=== PATIENT | male | born 1940 | race Caucasian/White ===

== ENCOUNTER 2018-02-12 11:56 | Observation (INO) | payer OTHER, MEDICARE ==
[2018-02-12] MEDS ORDERED: SODIUM CHLORIDE 0.9% 1,000 ML IV STA (12:09)
--- NOTE | 2018-02-12 12:12 | ED ---
Syncope HPI - General Stated Complaint: FALL Time Seen by Provider: 02/12/18 12:00 Source: patient, EMS, RN notes reviewed Mode of arrival: EMS - History of Present Illness Initial Comments: This is a 78-year-old male with a history of hypertension who was standing in a door hanging out states he rolls when he apparently passed out striking his head against a door states he was only out for a few seconds got up was out again for another second 2 denies any head neck or back pain who is brought in by EMS with a cervical collar in place no palpitations chest pain or other symptoms at this time MD Complaint: loss of consciousness - Related Data Home Medications Medication Instructions Recorded Confirmed Aspirin 81 mg PO DAILY 09/19/14 02/12/18 Digoxin [Lanoxin] 125 mcg PO DAILY 09/19/14 02/12/18 Lisinopril [Zestril] 10 mg PO DAILY 09/19/14 02/12/18 Metoprolol Tartrate [Lopressor] 50 mg PO DAILY 09/19/14 02/12/18 glipiZIDE [Glucotrol] 10 mg PO AC-BID 09/19/14 02/12/18 metFORMIN HCL [Glucophage] 850 mg PO TID 09/19/14 02/12/18 Furosemide [Lasix] 40 mg PO BID 02/12/18 02/12/18 Gabapentin [Neurontin] 400 mg PO TID 02/12/18 02/12/18 Insulin Detemir [Levemir Flextouch] 40 units SQ DAILY 02/12/18 02/12/18 Warfarin [Coumadin] 1 mg PO DAILY 02/12/18 02/12/18 Allergies Allergy/AdvReac Type Severity Reaction Status Date / Time No Known Allergies Allergy Verified 02/12/18 12:04 Review of Systems ROS Statement: Those systems with pertinent positive or pertinent negative responses have been documented in the HPI. ROS Other: All systems not noted in ROS Statement are negative. Past Medical History Past Medical History: Atrial Fibrillation, Diabetes Mellitus, Hyperlipidemia, Hypertension History of Any Multi-Drug Resistant Organisms: None Reported Past Psychological History: No Psychological Hx Reported Smoking Status: Never smoker Past Alcohol Use History: None Reported Past Drug Use History: None Reported General Exam - General Exam Comments Initial Comments: This is a well-developed well-nourished awake alert oriented 3 male temperature today [place] Coma Scale of 15 General appearance: alert, in no apparent distress Head exam: Present: atraumatic, normocephalic, normal inspection, other (No abrasions no) Eye exam: Present: normal appearance, PERRL, EOMI. Absent: scleral icterus, conjunctival injection, periorbital swelling ENT exam: Present: normal exam, mucous membranes moist Neck exam: Present: normal inspection. Absent: tenderness, meningismus, lymphadenopathy Respiratory exam: Present: normal lung sounds bilaterally. Absent: respiratory distress, wheezes, rales, rhonchi, stridor Cardiovascular Exam: Present: regular rate, normal rhythm, normal heart sounds. Absent: systolic murmur, diastolic murmur, rubs, gallop, clicks GI/Abdominal exam: Present: soft, normal bowel sounds. Absent: distended, tenderness, guarding, rebound, rigid Extremities exam: Present: normal inspection, full ROM, normal capillary refill. Absent: tenderness, pedal edema, joint swelling, calf tenderness Back exam: Present: normal inspection Neurological exam: Present: alert, oriented X3, CN II-XII intact Psychiatric exam: Present: normal affect, normal mood Skin exam: Present: warm, dry, intact, normal color. Absent: rash Course Vital Signs 02/12/18 02/12/18 02/12/18 12:08 12:28 13:29 Temperature 98.3 F Pulse Rate 74 79 Pulse Rate [ Right Pulse Oximetery] Respiratory 18 18 Rate Blood Pressure 223/98 148/78 143/70 Blood Pressure [Left Arm Sitting] Blood Pressure [Left Arm Standing] Blood Pressure [Left Arm Supine] O2 Sat by Pulse 96 96 Oximetry 02/12/18 02/12/18 14:23 15:34 Temperature Pulse Rate 85 Pulse Rate [ 72 Right Pulse Oximetery] Respiratory 17 18 Rate Blood Pressure 128/75 Blood Pressure 155/78 [Left Arm Sitting] Blood Pressure 163/74 [Left Arm Standing] Blood Pressure 152/75 [Left Arm Supine] O2 Sat by Pulse 98 100 Oximetry EKG Findings - EKG Results: EKG: interpreted by ORLY, sinus rhythm (Sinus rhythm of 80. Interval 174 QRS duration 110 QT since QTC 380/438 left exodeviation artifact is present) Medical Decision Making - Medical Decision Making I did discuss the findings with the patient family members patient is resting comfortably he will be admitted for evaluation of syncope. - Lab Data Result diagrams: 02/12/18 12:07 02/12/18 12:07 Lab Results 02/12/18 02/12/18 02/12/18 Range/Units 12:07 12:07 12:07 WBC 10.3 (3.8-10.6) k/uL RBC 4.08 L (4.30-5.90) m/uL Hgb 13.3 (13.0-17.5) gm/dL Hct 39.2 (39.0-53.0) % MCV 96.2 (80.0-100.0) fL MCH 32.6 (25.0-35.0) pg MCHC 33.9 (31.0-37.0) g/dL RDW 14.8 (11.5-15.5) % Plt Count 283 (150-450) k/uL Neutrophils % 70 % Lymphocytes % 16 % Monocytes % 6 % Eosinophils % 5 % Basophils % 0 % Neutrophils # 7.2 (1.3-7.7) k/uL Lymphocytes # 1.7 (1.0-4.8) k/uL Monocytes # 0.7 (0-1.0) k/uL Eosinophils # 0.5 (0-0.7) k/uL Basophils # 0.0 (0-0.2) k/uL PT (9.0-12.0) sec INR (<1.2) APTT (22.0-30.0) sec Sodium 137 (137-145) mmol/L Potassium 5.0 (3.5-5.1) mmol/L Chloride 106 (98-107) mmol/L Carbon Dioxide 22 (22-30) mmol/L Anion Gap 9 mmol/L BUN 30 H (9-20) mg/dL Creatinine 1.64 H (0.66-1.25) mg/dL Est GFR (CKD-EPI)AfAm 45 (>60 ml/min/1.73 sqM) Est GFR (CKD-EPI)NonAf 39 (>60 ml/min/1.73 sqM) Glucose 176 H (74-99) mg/dL Calcium 8.0 L (8.4-10.2) mg/dL Magnesium 1.8 (1.6-2.3) mg/dL Total Bilirubin 0.4 (0.2-1.3) mg/dL AST 30 (17-59) U/L ALT 27 (21-72) U/L Alkaline Phosphatase 60 (38-126) U/L Total Creatine Kinase 95 (55-170) U/L CK-MB (CK-2) 1.3 (0.0-2.4) ng/mL CK-MB (CK-2) Rel Index 1.4 Troponin I <0.012 (0.000-0.034) ng/mL Total Protein 5.8 L (6.3-8.2) g/dL Albumin 2.8 L (3.5-5.0) g/dL Urine Color Urine Appearance (Clear) Urine pH (5.0-8.0) Ur Specific Faxon (1.001-1.035) Urine Protein (Negative) Urine Glucose (UA) (Negative) Urine Ketones (Negative) Urine Blood (Negative) Urine Nitrite (Negative) Urine Bilirubin (Negative) Urine Urobilinogen (<2.0) mg/dL Ur Leukocyte Esterase (Negative) Urine RBC (0-5) /hpf Urine WBC (0-5) /hpf Ur Squamous Epith Cells (0-4) /hpf Urine Bacteria (None) /hpf Hyaline Casts (0-2) /lpf Urine Mucus (None) /hpf 02/12/18 02/12/18 Range/Units 12:07 12:07 WBC (3.8-10.6) k/uL RBC (4.30-5.90) m/uL Hgb (13.0-17.5) gm/dL Hct (39.0-53.0) % MCV (80.0-100.0) fL MCH (25.0-35.0) pg MCHC (31.0-37.0) g/dL RDW (11.5-15.5) % Plt Count (150-450) k/uL Neutrophils % % Lymphocytes % % Monocytes % % Eosinophils % % Basophils % % Neutrophils # (1.3-7.7) k/uL Lymphocytes # (1.0-4.8) k/uL Monocytes # (0-1.0) k/uL Eosinophils # (0-0.7) k/uL Basophils # (0-0.2) k/uL PT 20.2 H (9.0-12.0) sec INR 2.2 H (<1.2) APTT 26.3 (22.0-30.0) sec Sodium (137-145) mmol/L Potassium (3.5-5.1) mmol/L Chloride (98-107) mmol/L Carbon Dioxide (22-30) mmol/L Anion Gap mmol/L BUN (9-20) mg/dL Creatinine (0.66-1.25) mg/dL Est GFR (CKD-EPI)AfAm (>60 ml/min/1.73 sqM) Est GFR (CKD-EPI)NonAf (>60 ml/min/1.73 sqM) Glucose (74-99) mg/dL Calcium (8.4-10.2) mg/dL Magnesium (1.6-2.3) mg/dL Total Bilirubin (0.2-1.3) mg/dL AST (17-59) U/L ALT (21-72) U/L Alkaline Phosphatase (38-126) U/L Total Creatine Kinase (55-170) U/L CK-MB (CK-2) (0.0-2.4) ng/mL CK-MB (CK-2) Rel Index Troponin I (0.000-0.034) ng/mL Total Protein (6.3-8.2) g/dL Albumin (3.5-5.0) g/dL Urine Color Yellow Urine Appearance Clear (Clear) Urine pH 7.0 (5.0-8.0) Ur Specific [place] 1.012 (1.001-1.035) Urine Protein 4+ H (Negative) Urine Glucose (UA) 3+ H (Negative) Urine Ketones Negative (Negative) Urine Blood Small H (Negative) Urine Nitrite Negative (Negative) Urine Bilirubin Negative (Negative) Urine Urobilinogen <2.0 (<2.0) mg/dL Ur Leukocyte Esterase Negative (Negative) Urine RBC 2 (0-5) /hpf Urine WBC 5 (0-5) /hpf Ur Squamous Epith Cells 1 (0-4) /hpf Urine Bacteria Rare H (None) /hpf Hyaline Casts 5 H (0-2) /lpf Urine Mucus Rare H (None) /hpf - Radiology Data Radiology results: report reviewed (I did review the imaging and report no acute findings.), image reviewed Disposition Clinical Impression: Syncope Disposition: ADMITTED IP TO THIS [facility] Condition: Stable Referrals: Plonka,Ricardo J, MD [Primary Care Provider] - 1-2 days
[2018-02-12 12:39] LABS: Basophils % (A) 0 %; Eosinophils # (A) 0.5 k/uL (0-0.7); Eosinophils % (A) 5 %; HCT 39.2 % (39.0-53.0); HGB 13.3 gm/dL (13.0-17.5); Lymphocytes # (A) 1.7 k/uL (1.0-4.8); Lymphocytes % (A) 16 %; MCH 32.6 pg (25.0-35.0); MCHC 33.9 g/dL (31.0-37.0); MCV 96.2 fL (80.0-100.0); Mean Platelet Volume 7.8; Monocytes # (A) 0.7 k/uL (0-1.0); Monocytes % (A) 6 %; Neutrophils # (A) 7.2 k/uL (1.3-7.7); Neutrophils % (A) 70 %; Platelet Count 283 k/uL (150-450); RBC 4.08 m/uL (4.30-5.90); RDW 14.8 % (11.5-15.5); WBC 10.3 k/uL (3.8-10.6)
[2018-02-12 12:52] LABS: Appearance,Urine Clear (Clear); Bacteria,Urine Rare /hpf; Bilirubin,Urine Negative (Negative); Blood,Urine Small (Negative); Color,Urine Yellow; Glucose,Urine (UA) 3+ (Negative); Hyaline Casts,Urine 5 /lpf (0-2); Ketones,Urine Negative (Negative); Leukocyte Esterase,Urine Negative (Negative); Mucus,Urine Rare /hpf; Nitrite,Urine Negative (Negative); Protein,Urine 4+ (Negative); RBC,Urine 2 /hpf (0-5); Specific Gravity,Urine 1.012 (1.001-1.035); Squamous Epithelial Cell,Urine 1 /hpf (0-4); Urobilinogen,Urine <2.0 mg/dL (<2.0); WBC,Urine 5 /hpf (0-5)
[2018-02-12 12:56] LABS: Albumin 2.8 g/dL (3.5-5.0); Magnesium 1.8 mg/dL (1.6-2.3); Total Bilirubin 0.4 mg/dL (0.2-1.3); Total Protein 5.8 g/dL (6.3-8.2)
[2018-02-12 13:07] LABS: INR 2.2 (<1.2); Partial Thromboplastin Time 26.3 sec (22.0-30.0); Prothrombin Time 20.2 sec (9.0-12.0)
--- NOTE | 2018-02-12 13:10 | XR ---
EXAMINATION TYPE: XR chest 2V DATE OF EXAM: 02/12/2018 COMPARISON: NONE TECHNIQUE: PA and lateral views submitted. HISTORY: Syncope FINDINGS: The lungs are clear and there is no pneumothorax, pleural effusion, or focal pneumonia. Hypertrophic and degenerative change of the spine. There is subsegmental consolidation at both lung bases. Arthro maria esther of the shoulders. Heart is at the upper limits of normal. No pneumothorax. IMPRESSION: 1. Reduced inspiration with bilateral lower lobe consolidation likely in the basis of atelectasis cor relate clinically to exclude infiltrate. 2. Prominent central interstitium also may been the basis of markedly reduced inspiration correlate c linically.
[2018-02-12 13:15] LABS: Creatine Kinase 95 U/L (55-170)
--- NOTE | 2018-02-12 13:16 | CT ---
EXAMINATION TYPE: CT brain cspine wo con DATE OF EXAM: 02/12/2018 COMPARISON: 10/25/2012 HISTORY: fall with subsequent head and neck pain. CT DLP: 2210.2 mGycm. Automated Exposure Control for Dose Reduction was Utilized. TECHNIQUE: CT scan of the head and cervical spine are performed without contrast. FINDINGS: There is no acute intracranial hemorrhage or midline shift identified. There is diffuse v entricular and sulcal prominence consistent with diffuse age-related cerebral atrophy. There is low- attenuation in the periventricular white matter consistent with chronic small vessel ischemic change. There is incidental note of a cavum septum pellucidum et verge. Dystrophic calcifications of the bas al ganglia are also identified. Numerous skin calcifications and vascular calcifications are seen. Th e globes are intact and the visualized sinuses are clear. There is partial opacification of the mas toid air cells, right greater than left. Internal auditory canals appear well aerated. Atherosclerosi s is noted of the carotid arteries. Some atherosclerosis is also seen of the vertebral arteries. Ceru men impaction is incidentally noted of the right external auditory canal. Cervical spine is visualized in its entirety from C1 through upper thoracic levels and demonstrates s atisfactory alignment without evidence of acute fracture or dislocation. Multilevel moderate degenera tive changes are seen to resulting in variable degrees of neural foraminal narrowing. No significant spinal canal stenosis is appreciated. Prevertebral soft tissue appears within normal limits. The C1- C2 articulation is unremarkable. There is partial visualization of the previously seen left parotid gland lesion on the exam of 2012 IMPRESSION: 1. There is no acute fracture or dislocation evident in the cervical spine. 2. No acute intracranial hemorrhage, mass effect, or midline shift is seen. 3. Age-related volume loss and nonspecific white matter change, likely on the basis of chronic microa ngiopathy. 3. Partial visualization of a known left parotid gland mass seen on the exam of 2012. Full characteri zation with MR could be performed if not recently biopsied or characterized.
[2018-02-12 13:27] LABS: Creatine Kinase MB 1.3 ng/mL (0.0-2.4); Troponin I <0.012 ng/mL (0.000-0.034)
[2018-02-12] MEDS ORDERED: NALOXONE 0.4 MG/ML 1 ML VIAL IV PRN ×2 (16:35→18:57)
[2018-02-12] MEDS ORDERED: FUROSEMIDE 40 MG TAB PO SCH (17:00)
[2018-02-12] MEDS ORDERED: CALCIUM CARBONATE 500 MG CHEWABLE PO PRN (18:57)
[2018-02-12] MEDS ORDERED: ONDANSETRON 4 MG/2 ML VIAL IVP PRN (18:57)
--- NOTE | 2018-02-12 19:03 | P.HPIM ---
History of Present Illness H&P Date: 02/12/18 Chief Complaint: syncope Patient is an 78-year-old male past medical history of hypertension, diabetes with neuropathy insulin-dependent, A. fib, and coronary artery disease who presented to the ER after a syncopal episode. In the emergency department he underwent an extensive evaluation. His orthostatic vital signs were normal. Laboratory analysis showed a slightly elevated creatinine at 1.6 for an elevated BUN at 30. Chest x-ray showed bilateral lower lobe atelectasis. He underwent a CT brain which showed a partially visualized known left parotid mass and age appropriate atrophy. CT of the neck showed no acute fracture. Patient seen and examined at bedside in the emergency department. Today he was volunteering and had been standing passing outTootsie Rolls. He then fainted. He had no warning. He denied prior chest pain, palpitations, lightheadedness, dizziness, or shortness of breath. They state bystanders said he woke back up for a few seconds then passed out woke up again. He states he was immediately awake and alert. He denies any tongue biting, loss of bowel, loss of bladder, or tremors. He states that he has been feeling well. He had cold last week with runny nose, stuffy nose and cough which is since resolved. He has been eating and drinking normally. He has been struggling with lower extremity edema [facility] He does take a water pill wear compression stockings, and use compression devices at night. He did not wear his compression stockings today. He has no history of syncopal episodes. He states he was supposed to have carotid Doppler testing tomorrow at the direction of Dr. Castillo gets he has a known 60% blockage. He denies any recent medication changes. He follows his blood pressure and blood sugars daily. Last evening his systolic blood pressure was 115 and his blood sugar was 140. His PCP is Dr. garibay on he is also seen at the [place] [facility]. He denies any recent diarrhea, constipation, dysuria, unusual numbness or tingling, 1 arm or 1 leg that his weakness, and difficulty with speech. He reports no headache or blurry vision after his syncopal episode. Review of Systems Pertinent positives and negatives as discussed in HPI, a complete review of systems was performed and all other systems are negative. Past Medical History Past Medical History: Atrial Fibrillation, Coronary Artery Disease (CAD), Diabetes Mellitus, Hyperlipidemia, Hypertension History of Any Multi-Drug Resistant Organisms: None Reported Past Surgical History: Heart Catheterization With Stent Additional Past Surgical History / Comment(s): Cardiac catheterization with 2 stents Past Psychological History: No Psychological Hx Reported Smoking Status: Never smoker Past Alcohol Use History: None Reported Past Drug Use History: None Reported Additional History: Lives with his daughter Nessa, uses a cane when his neuropathy is bad. No other assistive devices. - Past Family History Father Additional Family Medical History / Comment(s): from heart disease Mother Additional Family Medical History / Comment(s): from unknown blood disorder Medications and Allergies Home Medications Medication Instructions Recorded Confirmed Type Aspirin 81 mg PO DAILY 09/19/14 02/12/18 History Digoxin [Lanoxin] 125 mcg PO DAILY 09/19/14 02/12/18 History Lisinopril [Zestril] 10 mg PO DAILY 09/19/14 02/12/18 History Metoprolol Tartrate [Lopressor] 50 mg PO DAILY 09/19/14 02/12/18 History glipiZIDE [Glucotrol] 10 mg PO AC-BID 09/19/14 02/12/18 History metFORMIN HCL [Glucophage] 850 mg PO TID 09/19/14 02/12/18 History Furosemide [Lasix] 40 mg PO BID 02/12/18 02/12/18 History Gabapentin [Neurontin] 400 mg PO TID 02/12/18 02/12/18 History Insulin Detemir [Levemir Flextouch] 40 units SQ DAILY 02/12/18 02/12/18 History Warfarin [Coumadin] 1 mg PO DAILY 02/12/18 02/12/18 History Allergies Allergy/AdvReac Type Severity Reaction Status Date / Time No Known Allergies Allergy Verified 02/12/18 12:04 Physical Exam Osteopathic Statement: *. No significant issues noted on an osteopathic structural exam other than those noted in the History and Physical/Consult. Vitals: Vital Signs Temp Pulse Pulse Resp BP BP BP 02/12/18 15:34 85 18 128/75 02/12/18 14:23 72 17 155/78 163/74 02/12/18 13:29 79 18 143/70 02/12/18 12:28 148/78 02/12/18 12:08 98.3 F 74 18 223/98 BP Pulse Ox 02/12/18 15:34 100 02/12/18 14:23 152/75 98 02/12/18 13:29 96 02/12/18 12:28 02/12/18 12:08 96 Intake and Output 02/12/18 02/12/18 02/12/18 06:59 14:59 22:59 Other: Weight 97.522 kg General: non toxic, no distress, appears at stated age, obese Derm: no unusual rashes/lesions no unusual ecchymoses, warm, dry Head: atraumatic, normocephalic, symmetric Eyes: EOMI, no lid lag, anicteric sclera, pupils equal round reactive to light ENT: Nose and ears atraumatic, no thrush, no pharyngeal erythema Neck: No thyromegaly, no cervical lymphadenopathy, trachea midline, supple Mouth: no lip lesion, mucus membranes moist Cardiovascular: S1-S2 regular, no murmur, plus edema bilateral lower extremities , capillary refill less than 2 seconds Lungs: CTA bilateral, no rhonchi, no rales , no accessory muscle use Abdominal: soft, nontender to palpation, no guarding, no appreciable organomegaly, normal bowel sounds Ext: no gross muscle atrophy, muscle strength 5 out of 5 in all 4 extremities grossly, no contractures, Neuro: CN II-XI grossly intact, light touch intact all 4 extremities, finger to nose within normal limits, Psych: Alert, oriented, appropriate affect Results CBC & Chem 7: 02/12/18 12:07 02/12/18 12:07 Labs: Abnormal Lab Results - Last 24 Hours (Table) 02/12/18 02/12/18 02/12/18 Range/Units 12:07 12:07 12:07 RBC 4.08 L (4.30-5.90) m/uL PT 20.2 H (9.0-12.0) sec INR 2.2 H (<1.2) BUN 30 H (9-20) mg/dL Creatinine 1.64 H (0.66-1.25) mg/dL Glucose 176 H (74-99) mg/dL Calcium 8.0 L (8.4-10.2) mg/dL Total Protein 5.8 L (6.3-8.2) g/dL Albumin 2.8 L (3.5-5.0) g/dL Urine Protein (Negative) Urine Glucose (UA) (Negative) Urine Blood (Negative) Urine Bacteria (None) /hpf Hyaline Casts (0-2) /lpf Urine Mucus (None) /hpf 02/12/18 Range/Units 12:07 RBC (4.30-5.90) m/uL PT (9.0-12.0) sec INR (<1.2) BUN (9-20) mg/dL Creatinine (0.66-1.25) mg/dL Glucose (74-99) mg/dL Calcium (8.4-10.2) mg/dL Total Protein (6.3-8.2) g/dL Albumin (3.5-5.0) g/dL Urine Protein 4+ H (Negative) Urine Glucose (UA) 3+ H (Negative) Urine Blood Small H (Negative) Urine Bacteria Rare H (None) /hpf Hyaline Casts 5 H (0-2) /lpf Urine Mucus Rare H (None) /hpf Comments: EKG reveals normal sinus rhythm at a rate of 80 with left axis deviation, no significant ST-T wave changes CT cervical spine reviewed CT Scan - head: report reviewed Thrombosis Risk Factor Assmnt - DVT/VTE Prophylaxis DVT/VTE Prophylaxis: Pharmacologic Prophylaxis ordered Assessment and Plan Assessment: Syncopal episode -Telemetry, echocardiogram, check carotid Dopplers with history of carotid stenosis, repeat orthostatic vitals in a.m. Dehydration versus chronic kidney disease -No prior laboratory analysis available -Gentle IV fluids, hold lasix -Repeat basic metabolic profile in a.m. -Avoid nephrotoxic agents Hypertension, mildly elevated on arrival but now well controlled without intervention -Resume home lisinopril, metoprolol - follow BP Atrial fibrillation with controlled ventricular response -Pharmacy to dose Coumadin -Telemetry -Continue with digoxin and metoprolol Diabetes mellitus type 2, well controlled with diabetic neuropathy -Continue with home Lantus, and glipizide -hold metformin -Continue with Neurontin - accuchecks, check A1C Obesity - structured outpatient weight loss The patient is placed in observation with an anticipated less than 2 per night stay for evaluation of []. Surrogate decision-maker: Daughter-Nessa CODE STATUS: Full code, would not want long-term ventilation DVT prophylaxis: Coumadin Discussed with: Patient, ED physician, family Anticipated discharge date: [address]: Home A total of 65 minutes was spent on the care of this complex patient more than 50 % of the time was spent in counseling and care coordination.
[2018-02-12 20:24] LABS: Glucose,Whole Blood 209 mg/dL (75-99)
[2018-02-12] MEDS: INSULIN ASPART 100 UNIT/ML 1 ML 10 ML VIAL SQ SCH ×2 (20:40→21:15)
[2018-02-12] MEDS ORDERED: WARFARIN 5 MG TAB PO SCH (20:45)
[2018-02-12] MEDS: SODIUM CHLORIDE 0.9% 1,000 ML IV SCH (21:15)
[2018-02-12] MEDS: glipiZIDE 10 MG TAB PO SCH (21:16)
[2018-02-12] MEDS: ASPIRIN 81 MG PO SCH (21:16)
[2018-02-12] MEDS: INSULIN DETEMIR 100 UNIT/ML 10 ML VIAL SQ SCH (21:16)
[2018-02-12] MEDS: MAGNESIUM OXIDE 400 MG TAB PO SCH (21:16)
[2018-02-12] MEDS: MULTIVITAMINS, THERA 1 EACH TAB PO SCH (21:17)
[2018-02-12] MEDS: GABAPENTIN 400 MG CAP PO SCH (21:18)
[2018-02-12] MEDS ORDERED: metFORMIN 850 MG TAB PO SCH (22:00)
[2018-02-12] MEDS: ACETAMINOPHEN TAB 325 MG TAB PO PRN (23:30)
[2018-02-13 07:09] LABS: Glucose,Whole Blood 71 mg/dL (75-99)
[2018-02-13 07:31] LABS: INR 2.3 (<1.2); Prothrombin Time 21.1 sec (9.0-12.0)
[2018-02-13] MEDS: INSULIN ASPART 100 UNIT/ML 1 ML 10 ML VIAL SQ SCH ×4 (08:09→20:57)
[2018-02-13 08:43] LABS: Calcium 7.4 mg/dL (8.4-10.2); Potassium 4.2 mmol/L (3.5-5.1)
--- NOTE | 2018-02-13 08:57 | US ---
EXAMINATION TYPE: US carotid duplex BILAT DATE OF EXAM: 02/13/2018 COMPARISON: CT Brain, CT neck CLINICAL HISTORY: syncope; diabetic, CAD/ stents 2004 EXAM MEASUREMENTS: RIGHT: Peak Systolic Velocity (PSV) cm/sec ----- Right CCA: 59.4 ----- Right ICA: 77.9 ----- Right ECA: 70.0 ICA/CCA ratio: 1.3 RIGHT: End Diastole cm/sec ----- Right CCA: 14.4 ----- Right ICA: 27.6 ----- Right ECA: 10.4 LEFT: Peak Systolic Velocity (PSV) cm/sec ----- Left CCA: 67.3 ----- Left ICA: 66.0 ----- Left ECA: 73.9 ICA/CCA ratio: 1.0 LEFT: End Diastole cm/sec ----- Left CCA: 21.0 ----- Left ICA: 17.1 ----- Left ECA: 7.8 VERTEBRALS (direction of flow): Right Vertebral: Antegrade Left Vertebral: Antegrade Rhythm: Normal Irregular, calcified plaque is noted at bilateral carotid, but PSV is wnl bilaterally. IMPRESSION: I DO NOT SEE EVIDENCE OF A HEMODYNAMICALLY SIGNIFICANT STENOSIS IN EITHER CAROTID SYSTEM. Criteria for Assigning % of Stenosis / Diameter reduction (Estimation based on the indirect measurements of the internal carotid artery velocities (ICA PSV). 1. Normal (no stenosis)=ICA PSV < 125 cm/s: ratio < 2.0: ICA EDV<40 cm/s. 2. Less than 50% stenosis=ICA PSV < 125 cm/s: ratio < 2.0: ICA EDV<40 cm/s. 3. 50 to 69% stenosis=ICA PSV of 125 to 230 cm/s: ration 2.0 ? 4.0: ICA EDV 40-100 cm/s. 4. Greater than 70% stenosis to near occlusion= ICA PSV > 230 cm/s: ratio > 4.0: ICA EDV > 100 cm/s. 5. Near occlusion= ICA PSV velocities may be low or undetectable: variable ratio and ICA EDV. 6. Total occlusion=unable to detect flow.
[2018-02-13] MEDS: ASPIRIN 81 MG PO SCH (08:58)
[2018-02-13] MEDS: SPIRONOLACTONE 25 MG TAB PO SCH (08:58)
[2018-02-13] MEDS: DIGOXIN 125 MCG TAB PO SCH (08:58)
[2018-02-13] MEDS: MAGNESIUM OXIDE 400 MG TAB PO SCH (08:58)
[2018-02-13] MEDS: METOPROLOL TARTRATE 50 MG TAB PO SCH (08:58)
[2018-02-13] MEDS: GABAPENTIN 400 MG CAP PO SCH ×3 (08:58→20:55)
[2018-02-13] MEDS: MULTIVITAMINS, THERA 1 EACH TAB PO SCH (08:58)
[2018-02-13] MEDS: glipiZIDE 10 MG TAB PO SCH ×2 (08:58→20:55)
[2018-02-13] MEDS ORDERED: MAGNESIUM OXIDE 400 MG TAB PO SCH (09:00)
[2018-02-13] MEDS ORDERED: LISINOPRIL 10 MG TAB PO SCH (09:00)
[2018-02-13] MEDS ORDERED: ASPIRIN 81 MG PO SCH (09:00)
[2018-02-13] MEDS ORDERED: MULTIVITAMINS, THERA 1 EACH TAB PO SCH (09:00)
[2018-02-13] MEDS ORDERED: INSULIN DETEMIR 100 UNIT/ML 10 ML VIAL SQ SCH (09:00)
[2018-02-13] MEDS: ACETAMINOPHEN TAB 325 MG TAB PO PRN (09:03)
--- NOTE | 2018-02-13 10:17 | P.PN ---
Subjective Progress Note Date: 02/13/18 Principal diagnosis: patient is seen in follow up for syncope and RANDAL patient seen and examined today, no new complaints, denies any further falls, . denies any dizziness, lightheadedness, palpitations, or irregular heart beat,. denies any chest pain, SOB, fever or chills. patient does not want to stay in the hospital and very eager to go home. Objective - Vital Signs Vital signs: Vital Signs Temp 98.3 F 02/13/18 08:00 Pulse 90 02/13/18 08:00 Resp 18 02/13/18 08:00 BP 155/92 02/13/18 08:00 Pulse Ox 94 L 02/13/18 08:00 Intake & Output 02/12/18 02/13/18 02/13/18 18:59 06:59 18:59 Intake Total 200 Balance 200 Weight 97.522 kg Intake: IV 200 Sodium Chloride 0.9% 1, 200 000 ml @ 50 mls/hr IV . Q20H [facility] Rx#:[id number] Other: Voiding Method Toilet Toilet # Voids 2 - Exam Constitutional: vital signs stable, Not in acute distress, pleasant, conversant Lungs: Clear to auscultation bilaterally, clear to percussion, normal respiratory effort no use of accessory muscles Cardiovascular: Regular rate and rhythm, no murmurs, no gallops, no rubs, +2 peripheral edema Gastrointestinal: Soft, no tenderness to palpation, no palpable hepatosplenomegally, bowel sounds positive, no abdominal wall hernias Extremities: No digital cyanosis or clubbing, peripheral pulses palpable and equal over bilateral radial arteries and dorsalis pedis artery, no calf muscle tenderness Psych: Alert, oriented to place, person and time, appropriate affect, intact judgment Neuro: Cranial nerves II-XII grossly intact, no focal sensory deficits to touch - Labs CBC & Chem 7: 02/12/18 12:07 02/13/18 06:56 Labs: Abnormal Lab Results - Last 24 Hours (Table) 02/12/18 02/12/18 02/12/18 Range/Units 12:07 12:07 12:07 RBC 4.08 L (4.30-5.90) m/uL PT 20.2 H (9.0-12.0) sec INR 2.2 H (<1.2) Chloride (98-107) mmol/L BUN 30 H (9-20) mg/dL Creatinine 1.64 H (0.66-1.25) mg/dL Glucose 176 H (74-99) mg/dL POC Glucose (mg/dL) (75-99) mg/dL Calcium 8.0 L (8.4-10.2) mg/dL Total Protein 5.8 L (6.3-8.2) g/dL Albumin 2.8 L (3.5-5.0) g/dL Urine Protein (Negative) Urine Glucose (UA) (Negative) Urine Blood (Negative) Urine Bacteria (None) /hpf Hyaline Casts (0-2) /lpf Urine Mucus (None) /hpf 02/12/18 02/12/18 02/13/18 Range/Units 12:07 20:21 06:56 RBC (4.30-5.90) m/uL PT (9.0-12.0) sec INR (<1.2) Chloride 110 H (98-107) mmol/L BUN 26 H (9-20) mg/dL Creatinine 1.42 H (0.66-1.25) mg/dL Glucose 68 L (74-99) mg/dL POC Glucose (mg/dL) 209 H (75-99) mg/dL Calcium 7.4 L (8.4-10.2) mg/dL Total Protein (6.3-8.2) g/dL Albumin (3.5-5.0) g/dL Urine Protein 4+ H (Negative) Urine Glucose (UA) 3+ H (Negative) Urine Blood Small H (Negative) Urine Bacteria Rare H (None) /hpf Hyaline Casts 5 H (0-2) /lpf Urine Mucus Rare H (None) /hpf 02/13/18 02/13/18 Range/Units 06:56 07:08 RBC (4.30-5.90) m/uL PT 21.1 H (9.0-12.0) sec INR 2.3 H (<1.2) Chloride (98-107) mmol/L BUN (9-20) mg/dL Creatinine (0.66-1.25) mg/dL Glucose (74-99) mg/dL POC Glucose (mg/dL) 71 L (75-99) mg/dL Calcium (8.4-10.2) mg/dL Total Protein (6.3-8.2) g/dL Albumin (3.5-5.0) g/dL Urine Protein (Negative) Urine Glucose (UA) (Negative) Urine Blood (Negative) Urine Bacteria (None) /hpf Hyaline Casts (0-2) /lpf Urine Mucus (None) /hpf Assessment and Plan Assessment: Patient is an 78-year-old male past medical history of hypertension, diabetes with neuropathy insulin-dependent, A. fib, and coronary artery disease who presented to the ER after a syncopal episode. In the emergency department he underwent an extensive evaluation. His orthostatic vital signs were normal. Laboratory analysis showed a slightly elevated creatinine at 1.6 for an elevated BUN at 30. Chest x-ray showed bilateral lower lobe atelectasis. He underwent a CT brain which showed a partially visualized known left parotid mass and age appropriate atrophy. CT of the neck showed no acute fracture. Patient seen and examined at bedside in the emergency department. Today he was volunteering and had been standing passing outTootsie Rolls. He then fainted. He had no warning. He denied prior chest pain, palpitations, lightheadedness, dizziness, or shortness of breath. They state bystanders said he woke back up for a few seconds then passed out woke up again. He states he was immediately awake and alert. He denies any tongue biting, loss of bowel, loss of bladder, or tremors. He states that he has been feeling well. He had cold last week with runny nose, stuffy nose and cough which is since resolved. He has been eating and drinking normally. He has been struggling with lower extremity edema which has been treated through the [place]. He does take a water pill wear compression stockings, and use compression devices at night. He did not wear his compression stockings today. He has no history of syncopal episodes. He states he was supposed to have carotid Doppler testing tomorrow at the direction of Dr. Castillo gets he has a known 60% blockage. He denies any recent medication changes. He follows his blood pressure and blood sugars daily. Last evening his systolic blood pressure was 115 and his blood sugar was 140. His PCP is Dr. garibay on he is also seen at the [place] [facility]. He denies any recent diarrhea, constipation, dysuria, unusual numbness or tingling, 1 arm or 1 leg that his weakness, and difficulty with speech. He reports no headache or blurry vision after his syncopal episode. Plan: K Syncopal episode -Telemetry, echocardiogram repeat orthostatic vitals carotid doppler showed no hemodynamically significant stenosis Echo cardiogram still pending RANDAL due to prerenal ATN from Dehydration with ?chronic kidney disease -No prior laboratory analysis available -Gentle IV fluids, hold lasix -Repeat basic metabolic profile in a.m. -Avoid nephrotoxic agents (patient continued on lisinopril though) Cr improving today Hypertension, mildly elevated on arrival but now well controlled without intervention -Resume home lisinopril, metoprolol - follow BP Atrial fibrillation with controlled ventricular response -Pharmacy to dose Coumadin -Telemetry -Continue with digoxin and metoprolol Diabetes mellitus type 2, well controlled with diabetic neuropathy -Continue with home Lantus, and glipizide -hold metformin -Continue with Neurontin - accuchecks, check A1C Obesity - structured outpatient weight loss peripheral edema, 2/2 venous insufficiency encouraged to use the compression stocking elevate legs when possible right hip pain , chronic tylenol prn Patient is requesting to be discharged home, he understand that this test may not be all done, he will follow-up outpatient with his PCP to get the echocardiogram done if that's not done during this hospital stay. Patient will be monitored for another day follow up labs in the morning. Patient refused to wait for the echocardiogram to be performed , and that he would leave tomorrow regardless and he would consider getting it done as OP. family at bedside and supports his decision . Anticipated discharge date: [address]: [facility]
[2018-02-13 11:47] LABS: Glucose,Whole Blood 181 mg/dL (75-99)
--- NOTE | 2018-02-13 14:39 | ECHOF ---
Referral Reason:syncope MEASUREMENTS -------- HEIGHT: 165.1 cm WEIGHT: 97.5 kg BP: RVIDd: 2.7 cm (< 3.3) IVSd: 1.1 cm (0.6 - 1.1) LVIDd: 5.6 cm (3.9 - 5.3) LVPWd: 1.1 cm (0.6 - 1.1) IVSs: 1.6 cm LVIDs: 3.5 cm LVPWs: 1.2 cm LA Diam: 4.2 cm (2.7 - 3.8) LAESV Index (A-L): 30.95 ml/m Ao Diam: 3.9 cm (2.0 - 3.7) AV Cusp: 1.6 cm (1.5 - 2.6) LA Diam: 4.0 cm (2.7 - 3.8) MV EXCURSION: 17.701 mm (> 18.000) MV EF SLOPE: 82 mm/s (70 - 150) EPSS: 0.5 cm MV E Harry: 0.43 m/s MV DecT: 289 ms MV A Harry: 0.66 m/s MV E/A Ratio: 0.65 RAP: 5.00 mmHg RVSP: 26.84 mmHg FINDINGS -------- Sinus rhythm. This was a technically good study. The left ventricular size is normal. There is borderline concentric left ventricular hypertrophy. Overall left ventricular systolic function is normal with, an EF between 55 - 60 %. The right ventricle is normal in size. The left atrial size is normal. LA is midly dilated 29-33ml/m2. The right atrial size is normal. The aortic valve is trileaflet, and appears structurally normal. No aortic stenosis or regurgitation. Mild mitral annular calcification present. Mild mitral regurgitation is present. Mild tricuspid regurgitation present. There is no evidence of pulmonary hypertension. The right v entricular systolic pressure, as measured by Doppler, is 26.84mmHg. Trace/mild (physiologic) pulmonic regurgitation. The aortic root size is normal. There is no pericardial effusion. CONCLUSIONS -------- 1. The left ventricular size is normal. 2. There is borderline concentric left ventricular hypertrophy. 3. Overall left ventricular systolic function is normal with, an EF between 55 - 60 %. 4. The right ventricle is normal in size. 5. The left atrial size is normal. 6. LA is midly dilated 29-33ml/m2. 7. The right atrial size is normal. 8. The aortic valve is trileaflet, and appears structurally normal. No aortic stenosis or regurgitati on. 9. Mild mitral annular calcification present. 10. Mild mitral regurgitation is present. 11. Mild tricuspid regurgitation present. 12. There is no evidence of pulmonary hypertension. 13. The right ventricular systolic pressure, as measured by Doppler, is 26.84mmHg. 14. Trace/mild (physiologic) pulmonic regurgitation. 15. The aortic root size is normal. 16. There is no pericardial effusion. NET DEVELOPER: Odlays Verma RDCS
[2018-02-13 17:04] LABS: Glucose,Whole Blood 164 mg/dL (75-99)
[2018-02-13] MEDS ORDERED: WARFARIN 10 MG TAB PO SCH (18:00)
[2018-02-13] MEDS ORDERED: WARFARIN 1 MG TAB PO SCH (18:00)
[2018-02-13] MEDS: SODIUM CHLORIDE 0.9% 1,000 ML IV SCH (19:59)
[2018-02-13 20:28] LABS: Glucose,Whole Blood 172 mg/dL (75-99)
[2018-02-13] MEDS: INSULIN DETEMIR 100 UNIT/ML 10 ML VIAL SQ SCH (20:55)
[2018-02-13] MEDS ORDERED: MELATONIN 3 MG TABLET PO SCH (21:00)
[2018-02-14] MEDS: SODIUM CHLORIDE 0.9% 1,000 ML IV SCH (03:56)
[2018-02-14 07:05] LABS: Glucose,Whole Blood 104 mg/dL (75-99)
[2018-02-14 07:26] LABS: Calcium 7.1 mg/dL (8.4-10.2); Potassium 4.6 mmol/L (3.5-5.1)
[2018-02-14] MEDS: INSULIN ASPART 100 UNIT/ML 1 ML 10 ML VIAL SQ SCH (08:07)
[2018-02-14] MEDS: ASPIRIN 81 MG PO SCH (08:13)
[2018-02-14] MEDS: METOPROLOL TARTRATE 50 MG TAB PO SCH (08:14)
[2018-02-14] MEDS: DIGOXIN 125 MCG TAB PO SCH (08:14)
[2018-02-14] MEDS: MAGNESIUM OXIDE 400 MG TAB PO SCH (08:14)
[2018-02-14] MEDS: SPIRONOLACTONE 25 MG TAB PO SCH (08:14)
[2018-02-14] MEDS: glipiZIDE 10 MG TAB PO SCH (08:14)
[2018-02-14] MEDS: GABAPENTIN 400 MG CAP PO SCH (08:14)
[2018-02-14] MEDS: MULTIVITAMINS, THERA 1 EACH TAB PO SCH (08:14)
[2018-02-14 08:15] VITALS: BP 148/77; PULSE 81; RESP 16; TEMP 98.4
--- NOTE | 2018-02-14 10:26 | P.DS ---
Providers Date of admission: 02/12/18 16:35 Expected date of discharge: 02/14/18 Attending physician: Emy Abarca DO Primary care physician: Ricardo [facility] Course: Final diagnoses at discharge Syncope secondary to dehydration Acute kidney injury on CK D secondary to prerenal ATN from dehydration Secondary diagnoses Ckd Hypertension Diabetes mellitus type 2 Varicose veins Studies done during this visit Echocardiogram of the heart showed normal left ventricular ejection fraction Carotid Doppler ultrasound showed no hemodynamically significant stenosis Computed tomography scan of the head and cervical spine showed no acute process Patient is an 78-year-old male past medical history of hypertension, diabetes with neuropathy insulin-dependent, A. fib, and coronary artery disease who presented to the ER after a syncopal episode. In the emergency department he underwent an extensive evaluation. His orthostatic vital signs were normal. Laboratory analysis showed a slightly elevated creatinine at 1.6 for an elevated BUN at 30. Chest x-ray showed bilateral lower lobe atelectasis. He underwent a CT brain which showed a partially visualized known left parotid mass and age appropriate atrophy. CT of the neck showed no acute fracture. Patient seen and examined at bedside in the emergency department. Today he was volunteering and had been standing passing outToGameAnalyticsie Rolls. He then fainted. He had no warning. He denied prior chest pain, palpitations, lightheadedness, dizziness, or shortness of breath. They state bystanders said he woke back up for a few seconds then passed out woke up again. He states he was immediately awake and alert. He denies any tongue biting, loss of bowel, loss of bladder, or tremors. He states that he has been feeling well. He had cold last week with runny nose, stuffy nose and cough which is since resolved. He has been eating and drinking normally. He has been struggling with lower extremity edema which [facility] He does take a water pill wear compression stockings, and use compression devices at night. He did not wear his compression stockings today. He has no history of syncopal episodes. He states he was supposed to have carotid Doppler testing tomorrow at the direction of Dr. Castillo gets he has a known 60% blockage. He denies any recent medication changes. He follows his blood pressure and blood sugars daily. Last evening his systolic blood pressure was 115 and his blood sugar was 140. His PCP is Dr. garibay on he is also seen at the [place] [facility]. He denies any recent diarrhea, constipation, dysuria, unusual numbness or tingling, 1 arm or 1 leg that his weakness, and difficulty with speech. He reports no headache or blurry vision after his syncopal episode. Patient seen and examined on day of discharge, denies any dizziness or lightheadedness denies any chest pain or trouble breathing. Patient was eager to go home. Tolerating diet. Patient was counseled yesterday regarding wearing his compression stockings, he reports significant difference in his leg swelling today as a improved since he started using the compression stockings. Constitutional: vital signs stable, Not in acute distress, pleasant, conversant Lungs: Clear to auscultation bilaterally, clear to percussion, normal respiratory effort no use of accessory muscles Cardiovascular: Regular rate and rhythm, no murmurs, no gallops, no rubs, trace peripheral edemaBilaterally Gastrointestinal: Soft, no tenderness to palpation, no palpable hepatosplenomegally, bowel sounds positive, no abdominal wall hernias Extremities: No digital cyanosis or clubbing, peripheral pulses palpable and equal over bilateral radial arteries and dorsalis pedis artery, no calf muscle tenderness Psych: Alert, oriented to place, person and time, appropriate affect, intact judgment Neuro: Cranial nerves II-XII grossly intact, no focal sensory deficits to touch Discharge home today in stable clinical condition Follow up with PCP Continue home medications, discontinue Lasix Patient counseled to elevate his legs whenever he sitting, and to use compression stockings throughout the day and to be taken off before bedtime Patient was also counseled to avoid falls by keeping a night light on and then when he changes position from sitting or laying down to take it easy and stay next to chair or bed for a minute or so before he starts walking to make sure that he wouldn't fall due to risk of intracranial bleed while on Coumadin 30 minutes were spent discharging this patient, and more than 50% of the time was spent in counseling the patient and family and in coordinating care. Patient Condition at Discharge: Stable Plan - Discharge Summary Discharge Rx Participant: No New Discharge Prescriptions: Continue glipiZIDE [Glucotrol] 10 mg PO AC-BID Aspirin 81 mg PO DAILY Digoxin [Lanoxin] 125 mcg PO DAILY metFORMIN HCL [Glucophage] 850 mg PO TID Metoprolol Tartrate [Lopressor] 50 mg PO DAILY Lisinopril [Zestril] 10 mg PO DAILY Insulin Detemir [Levemir Flextouch] 40 units SQ DAILY Gabapentin [Neurontin] 400 mg PO TID Warfarin [Coumadin] 5 mg PO MOFR Spironolactone [Aldactone] 25 mg PO DAILY Magnesium 250 mg PO DAILY Multivitamin [Men's Multi-Vitamin] 1 each PO DAILY Warfarin [Coumadin] 10 mg PO SUTUWETHSA Discontinued Furosemide [Lasix] 40 mg PO BID Discharge Medication List Aspirin 81 mg PO DAILY 09/19/14 [History] Digoxin [Lanoxin] 125 mcg PO DAILY 09/19/14 [History] Lisinopril [Zestril] 10 mg PO DAILY 09/19/14 [History] Metoprolol Tartrate [Lopressor] 50 mg PO DAILY 09/19/14 [History] glipiZIDE [Glucotrol] 10 mg PO AC-BID 09/19/14 [History] metFORMIN HCL [Glucophage] 850 mg PO TID 09/19/14 [History] Gabapentin [Neurontin] 400 mg PO TID 02/12/18 [History] Insulin Detemir [Levemir Flextouch] 40 units SQ DAILY 02/12/18 [History] Magnesium 250 mg PO DAILY 02/12/18 [History] Multivitamin [Men's Multi-Vitamin] 1 each PO DAILY 02/12/18 [History] Spironolactone [Aldactone] 25 mg PO DAILY 02/12/18 [History] Warfarin [Coumadin] 5 mg PO MOFR 02/12/18 [History] Warfarin [Coumadin] 10 mg PO SUTUWETHSA 02/12/18 [History] Follow up Appointment(s)/Referral(s): Ricardo Avila MD [Primary Care Provider] - 1-2 days Patient Instructions/Handouts: Dehydration (DC) Discharge Disposition: HOME SELF-CARE
[2018-02-15] MEDS ORDERED: WARFARIN 5 MG TAB PO SCH (18:00)
== END 2018-02-14 10:56 | disposition home or self-care (01) ==
LOC: EC 11:56 → 3OBS 16:35 → 3SUR 19:14 → 3OBS 02-13 13:26
PROVIDERS: ADMIT Internal Medicine; ATTEND Internal Medicine
DX: E86.0 Dehydration (principal); N17.0 Acute kidney failure with tubular necrosis; I12.9 Hypertensive chronic kidney disease with stage 1 through stage 4 chronic kidney disease, or unspecified chronic kidney disease; N18.9 Chronic kidney disease, unspecified; E11.22 Type 2 diabetes mellitus with diabetic chronic kidney disease; E11.40 Type 2 diabetes mellitus with diabetic neuropathy, unspecified; I48.91 Unspecified atrial fibrillation; I25.10 Atherosclerotic heart disease of native coronary artery without angina pectoris; E78.5 Hyperlipidemia, unspecified; J98.11 Atelectasis; G89.29 Other chronic pain; M25.551 Pain in right hip; R60.0 Localized edema; E66.9 Obesity, unspecified; Z68.35 Body mass index [BMI] 35.0-35.9, adult; I83.90 Asymptomatic varicose veins of unspecified lower extremity; Z95.5 Presence of coronary angioplasty implant and graft; Z79.82 Long term (current) use of aspirin; Z79.01 Long term (current) use of anticoagulants; Z79.4 Long term (current) use of insulin; Z79.899 Other long term (current) drug therapy; Z82.49 Family history of ischemic heart disease and other diseases of the circulatory system
CPT/HCPCS: 99285; 36415; 93005; 93306; 97161; 80053; 80048 ×2; 82550; 82553; 83735; 84484; 85025; 85610 ×2; 85730; 81001; 71046; 93880; 72125; 70450; G0378 ×3

== ENCOUNTER → 2018-06-25 | Outpatient (CLI) | payer OTHER | END | disposition home or self-care (01) | LOC: RADUSWWP 12:47 | DX: I73.9 Peripheral vascular disease, unspecified (principal) | CPT/HCPCS: 93923 ==

== ENCOUNTER → 2018-09-20 | Outpatient (CLI) | payer OTHER ==
--- NOTE | 2018-09-20 16:48 | US ---
EXAMINATION TYPE: US kidneys/renal and bladder DATE OF EXAM: 09/20/2018 COMPARISON: NONE CLINICAL HISTORY: 78-year-old male N19 Unspecified kidney failure/disease. Abnormal renal labs TECHNIQUE: Multiple sonographic images of the kidneys and bladder are obtained. FINDINGS: EXAM MEASUREMENTS: Right Kidney: 10.6 x 5.6 x 6.2 cm Left Kidney: 10.8 x 6.3 x 5.6 cm Right Kidney: No hydronephrosis. Left Kidney: No hydronephrosis. Possible renal stone lower pole= 9mm Bladder: wnl Bilateral Jets seen: Yes IMPRESSION: 1. No hydronephrosis. 2. 9 mm echogenic focus at the left lower pole suspected to represent a nonobstructive calculus.
== END ==
LOC: RADUSWWP 14:54
DX: N19 Unspecified kidney failure (principal)
CPT/HCPCS: 76770

== ENCOUNTER → 2019-11-16 | Outpatient (CLI) | payer OTHER ==
[2019-11-16 17:05] LABS: African American GFR (CKD) 42.9 (60.0-200.0); Albumin 3.1 g/dL (3.80-4.90); Albumin/Globulin Ratio 1.48 (1.60-3.17); Anion Gap 6.8 mmol/L (4.00-12.00); BUN/Creat Ratio 11.18 Ratio (12.00-20.00); Calcium 8.4 mg/dL (8.7-10.3); Carbon Dioxide 26.2 mmol/L (21.6-31.8); Chol/HDL Ratio 4.14; Globulin 2.1 g/dL (1.6-3.3); LDL Cholesterol,Calculated 95.2 mg/dL (0.0-131.0); Potassium 4.9 mmol/L (3.5-5.5); Total Bilirubin 0.6 mg/dL (0.2-1.2); Total Protein 5.2 g/dL (6.2-8.2); VLDL Calculation 39.8 mg/dL (5.00-40.00)
== END | disposition home or self-care (01) ==
LOC: LABWHC1 07:52
PROVIDERS: ATTEND Internal Medicine Clinical Cardiac Electrophysiology
DX: I10 Essential (primary) hypertension (principal); I25.10 Atherosclerotic heart disease of native coronary artery without angina pectoris; I48.91 Unspecified atrial fibrillation; E78.5 Hyperlipidemia, unspecified
CPT/HCPCS: 36415; 80053; 80061; 84443

== ENCOUNTER 2020-01-02 06:21 | Day surgery (SDC) | payer OTHER ==
[2019-12-26 14:03] VITALS: BMI 35.7
[2020-01-02] MEDS ORDERED: SODIUM CHLORIDE 0.9% 500 ML 500 ML IV ONE (07:06)
[2020-01-02 07:09] VITALS: RESP 16; TEMP 97.5
[2020-01-02 07:14] LABS: Glucose,Whole Blood 135 mg/dL (75-99)
[2020-01-02] MEDS ORDERED: fentaNYL (PF) 50 MCG/ML 2 ML AMP ONE (07:14)
[2020-01-02] MEDS: BENZOCAINE SPRAY 1 CAN TOPICAL ONE ×2 (07:35→07:43)
[2020-01-02] MEDS ORDERED: fentaNYL (PF) 50 MCG/ML 2 ML AMP IV ONE (07:55)
[2020-01-02] MEDS ORDERED: MIDAZOLAM 2 MG/2 ML VIAL IV ONE (07:55)
[2020-01-02] MEDS: MIDAZOLAM 2 MG/2 ML VIAL IV ONE ×2 (07:58→08:02)
[2020-01-02 09:11] VITALS: PULSE 68
--- NOTE | 2020-01-02 10:02 | ECHOT ---
TRANSESOPHAGEAL ECHOCARDIOGRAM DATE: January 02, 2020 PERFORMING PHYSICIAN: Merlin Kee MD. PROCEDURE PERFORMED: Transesophageal echocardiogram. INDICATION: This is an 79-year-old gentleman who sees Dr. Mack in the office as an outpatient with a past medical history significant for coronary artery disease and prior revascularization as well as chronic kidney disease, as well as paroxysmal atrial fibrillation, and hypertension and dyslipidemia and valvular heart disease, who was experiencing increasing in the shortness of breath with exertion. He underwent an echocardiogram recently and that revealed evidence of moderate to severe mitral regurgitation and aortic insufficiency. He was scheduled to undergo transesophageal echocardiogram for better clarification. Complications: None. LEVEL OF SEDATION: Moderate with sedation length of 15 minutes. PROCEDURE DESCRIPTION: After obtaining an informed consent, the patient was brought to the transesophageal echocardiogram suite. Pulse oximetry and heart rate monitors were attached to the patient. Subsequently, the patient was turned into left lateral position. After that and after a bite guard was placed, the transesophageal echocardiogram was advanced through the bite guard to the mid esophagus where 2D echocardiogram images as well as color Doppler images of various cardiac structures were obtained. Particular attention was made toward the aortic and mitral valves. We did transesophageal echocardiogram using 2D echocardiogram images, pulse Doppler, continuous Doppler, as well as color-flow Dopplers. The procedure was completed without any complication. FINDINGS: The left ventricular dimension and systolic function appeared to be normal with an ejection fraction appeared to be in the range of 55% to 60%. with mild concentric LVH. The right ventricle appeared to be of normal size and function. The left atrium and right atrium are severely dilated. The left atrial appendage appeared to be free from any thrombus. The interatrial septum appeared to be hyperdynamic, but no evidence of shunt by color-flow Doppler or by contrast study. The aortic valve appeared to be trileaflet valve and the valve appeared to be thickened and calcified with evidence of aortic sclerosis as well as aortic insufficiency. The aortic insufficiency appeared to be in the moderate range. No evidence of aortic stenosis. The mitral valve also appeared to be thickened and calcified with evidence of moderate mitral regurgitation by color-flow Doppler. There was mild tricuspid regurgitation seen and mild pulmonic insufficiency seen as well. No evidence of pericardial effusion seen. CONCLUSION: 1. Normal left ventricular dimension and systolic function with an ejection fraction of 55% to 60%. 2. Mild to moderate concentric left ventricular hypertrophy was seen. 3. Normal right ventricular dimension and systolic function. 4. Severe biatrial enlargement. 5. Hyperdynamic interatrial septum without any evidence of shunt. 6. Aortic sclerosis without stenosis with moderate aortic insufficiency. There was no reversal flow was seen in the descending aorta. 7. Thickened anterior and posterior mitral leaflets with evidence of moderate mitral regurgitation only. 8. Mild to moderate tricuspid regurgitation. 9. No evidence of pericardial effusion. 10.Dilated aortic root. I would obtain a CTA for further clarification of the aortic root dimension. 11.Follow up with Dr. Mack. [id number] / IJN: [id number] /
[2020-01-02 10:24] VITALS: BP 132/68
== END 2020-01-02 10:00 | disposition home or self-care (01) ==
LOC: CATHCVL 06:21
PROVIDERS: ATTEND Internal Medicine Interventional Cardiology
DX: I08.3 Combined rheumatic disorders of mitral, aortic and tricuspid valves (principal); I48.0 Paroxysmal atrial fibrillation; I44.7 Left bundle-branch block, unspecified; I25.10 Atherosclerotic heart disease of native coronary artery without angina pectoris; I12.9 Hypertensive chronic kidney disease with stage 1 through stage 4 chronic kidney disease, or unspecified chronic kidney disease; E11.22 Type 2 diabetes mellitus with diabetic chronic kidney disease; N18.3 Chronic kidney disease, stage 3 (moderate); E78.5 Hyperlipidemia, unspecified; Z79.01 Long term (current) use of anticoagulants; Z79.4 Long term (current) use of insulin; Z79.899 Other long term (current) drug therapy; Z82.49 Family history of ischemic heart disease and other diseases of the circulatory system
CPT/HCPCS: 93312; 93320; 93325; J2250; J3010

== ENCOUNTER 2020-01-20 10:59 | Outpatient (CLI) | payer OTHER ==
[2020-01-20] MEDS ORDERED: SODIUM CHLORIDE 0.9% 1,000 ML IV SCH (11:10)
[2020-01-20 12:09] LABS: Calcium 8.4 mg/dL (8.4-10.2)
[2020-01-20 12:10] LABS: Potassium 4.7 mmol/L (3.5-5.1)
--- NOTE | 2020-01-20 14:20 | CT ---
EXAMINATION TYPE: CT angio chest DATE OF EXAM: 01/20/2020 COMPARISON: None HISTORY: Thoracic aortic aneurysm. CT DLP: 594.9 mGycm CONTRAST: CTA thoracic aorta with 3-D reconstruction is performed and with IV Contrast, patient injected with 8 0 mL of Isovue 370. Contrast CTA of the thoracic aorta was performed from the lung apex through the upper abdomen. 3D re construction imaging obtained at a separate workstation. CT Chest: THORACIC AORTA: There is ascending thoracic aortic aneurysm at 4.0 cm AP dimension. The remaining tho racic aorta is of normal caliber. Mild atheromatous changes seen. There is no evidence for dissectio n or periaortic collection. LUNGS: The lungs are clear and free of infiltrate or atelectasis. No pulmonary nodule or mass is det ected. Calcified granuloma right lower lobe. No pleural effusion or CT evidence of interstitial lung disease. MEDIASTINUM: Small sliding-type hiatal hernia detected. No evidence for mediastinal hematoma. The h eart is not enlarged. No evidence for mediastinal mass or adenopathy. HILAR STRUCTURES: No evidence for mass. No hilar adenopathy is appreciated. OTHER: Splenic granulomas identified. IMPRESSION- 1. Mild ascending thoracic aortic aneurysm without complicating factor.
[2020-01-20 17:02] VITALS: BP 159/69; PULSE 81; RESP 16; TEMP 98.3
== END 2020-01-20 16:35 | disposition home or self-care (01) ==
LOC: RADCTMAIN 10:59
PROVIDERS: ATTEND Nurse Practitioner Adult Health
DX: I71.2 Thoracic aortic aneurysm, without rupture (principal)
CPT/HCPCS: 80048; 71275; Q9967

== ENCOUNTER → 2021-11-04 | Outpatient (CLI) | payer OTHER ==
--- NOTE | 2021-11-04 15:53 | US ---
EXAMINATION TYPE: US kidneys/renal and bladder DATE OF EXAM: 11/04/2021 COMPARISON: CLINICAL HISTORY: N18.4 CKD STAGE 4. Abnormal labs EXAM MEASUREMENTS: Right Kidney: 10.7 x 5.4 x 5.9 cm Left Kidney: 10.1 x 4.8 x 6.5 cm Right Kidney: No hydronephrosis or masses seen Left Kidney: lower pole echogenic focus = 0.7 cm Bladder: distended, anechoic Bilateral Jets not seen IMPRESSION: 1. Nonobstructing inferior pole left renal stone
== END | disposition home or self-care (01) ==
LOC: RADUSWWP 14:18
PROVIDERS: ATTEND Internal Medicine Nephrology
DX: N18.4 Chronic kidney disease, stage 4 (severe) (principal); N20.0 Calculus of kidney
CPT/HCPCS: 76770

== ENCOUNTER → 2024-09-23 | Outpatient (CLI) | payer OTHER ==
[2024-09-23 16:06] LABS: BUN/Creat Ratio 15.56 Ratio (12.00-20.00); Blood Urea Nitrogen 52.9 mg/dL (9.0-27.0); Carbon Dioxide 23.6 mmol/L (21.6-31.8); Chloride 104 mmol/L (96-109); Chol/HDL Ratio 2.52 Ratio; Glucose 180 mg/dL (70-110); LDL Cholesterol,Calculated 38.2 mg/dL (0.0-131.0); Magnesium 2.1 mg/dL (1.5-2.4); Potassium 4.4 mmol/L (3.5-5.5); Sodium 140 mmol/L (135-145)
[2024-09-23 16:07] LABS: ALT 25 U/L (10-49); AST 22 U/L (14-35); Albumin 3.6 g/dL (3.8-4.9); Alkaline Phosphatase 77 U/L (41-126); Calcium 8.4 mg/dL (8.7-10.3); Globulin 2.4 g/dL (1.6-3.3); Total Bilirubin 0.3 mg/dL (0.3-1.2)
== END | disposition home or self-care (01) ==
LOC: LABWHC1 08:50
PROVIDERS: ATTEND Internal Medicine Clinical Cardiac Electrophysiology
DX: I10 Essential (primary) hypertension (principal); I48.0 Paroxysmal atrial fibrillation; I35.1 Nonrheumatic aortic (valve) insufficiency
CPT/HCPCS: 36415; 80053; 80061; 83735; 84443